=== PATIENT | male | born 1990 | race Caucasian/White ===

== ENCOUNTER 2020-09-08 12:13 | Emergency (ER) | payer MEDICAID ==
[2020-09-08 12:18] VITALS: BP 116/82
--- NOTE | 2020-09-08 12:23 | ED Physician Documentation ---
PD HPI UPPER EXT INJURY - Stated complaint Stated Complaint: LEFT HAND INJURY - Chief complaint Chief Complaint: Trauma Ext - History obtained from History obtained from: Patient - Additonal information Additional information: He is right-handed and up-to-date on tetanus. He was helping a friend and his left hand got caught between 2 rocks just about half an hour ago and he has pain in the area of the left thumb and the second and third metacarpals. Review of Systems Constitutional: reports: Reviewed and negative Throat: reports: Reviewed and negative Cardiac: reports: Reviewed and negative PD PAST MEDICAL HISTORY - Present Medications Home Medications: Ambulatory Orders Medication Instructions Recorded Confirmed HYDROcod/ACETAM 5/325 [[place] 5/325] 1 - 2 tab PO Q6H PRN #15 tab 09/08/20 - Allergies Allergies/Adverse Reactions: Allergies Allergy/AdvReac Type Severity Reaction Status Date / Time No Known Drug Allergies Allergy Verified 09/08/20 12:16 PD ED PE NORMAL - Vitals Vital signs reviewed: Yes - General General: Alert and oriented X 3, No acute distress - HEENT HEENT: PERRL, EOMI - Neck Neck: Supple, no meningeal sign, No bony TTP - Cardiac Cardiac: RRR, No murmur - Extremities Extremities: Other (see mdm- text box too small) - Neuro Neuro: Alert and oriented X 3, Normal speech Results - Vitals Vitals: Vital Signs - 24 hr 09/08/20 12:17 Temperature 36.8 C Heart Rate 76 Respiratory 18 Rate Blood Pressure 116/82 H O2 Saturation 100 Oxygen O2 Source Room air - Rads (name of study) 3v L hand Radiology: EMP read contemporaneously (Mildly displaced second metacarpal shaft fracture, although not commented on I do wonder if he is got a nondisplaced tuft fracture of the thumb as well.) Procedures - Splint (location) L hand Splint applied by: Physician Type of splint: Fiberglass, Thumb spica (Initially was planning on putting him in a radial gutter but he was actually more comfortable in a thumb spica.) Other: Patient tolerated well, No complications, Neurovascular intact, Other (Prior to splinting the abrasions were cleansed and dressed with Xeroform.) PD MEDICAL DECISION MAKING - ED course ED course: L hand exam: He has an early subungual hematoma of the left thumb, about 20%. There is significant swelling of the thumb and difficulty with range of motion due to pain. He is also tender over the second third metacarpals but without deformity or limited range of motion there. He has abrasions over the dorsum of the hand and the thumb. No neurovascular compromise at the tips of the digits. Departure - Departure Disposition: 01 Home, Self Care Clinical Impression: Fracture of second metacarpal bone Qualifiers: Encounter type: initial encounter Fracture type: closed Metacarpal location: shaft Fracture alignment: nondisplaced Laterality: left Qualified Code(s): S62.351A - Nondisplaced fracture of shaft of second metacarpal bone, left hand, initial encounter for closed fracture Condition: Good Record reviewed to determine appropriate education?: Yes Instructions: ED Fx Hand Closed Prescriptions: HYDROcod/ACETAM 5/325 [[place] 5/325] 1 - 2 tab PO Q6H PRN #15 tab PRN Reason: Pain Comments: Keep the splint on and dry, do not remove it. Follow-up with a hand surgeon in your area with a copy of the x-ray. Return if worsening.
[2020-09-08] MEDS ORDERED: TETANUS/DIPHTHERIA/PERTUSSIS 0.5 ML SYRINGE IM ONE (12:24)
[2020-09-08] MEDS ORDERED: ACETAMINOPHEN 325 MG TABLET PO STA (12:53)
--- NOTE | 2020-09-08 12:57 | XRAY Report ---
PROCEDURE: Hand 3 View LT INDICATIONS: hand inj TECHNIQUE: 3 views of the hand(s) acquired. COMPARISON: None FINDINGS: Bones: No dislocations. No suspicious bony lesions. Note is made of a set of a diagonal fractures involving the distal diaphysis and metadiaphysis of the second metacarpal bone, tracking distally tow ards but not clearly into the articular surface. No laceration or foreign body seen. Soft tissues: No suspicious soft tissue calcifications. IMPRESSION: Mildly comminuted distal second metacarpal fracture, only slightly malaligned, without laceration or foreign body seen. Reviewed by: Woody Fiarbanks MD on 09/08/2020 12:56 PM PST Approved by: Woody Fairbanks MD on 09/08/2020 12:56 PM PST Station ID: [id number]
== END 2020-09-08 13:12 | disposition home or self-care (01) ==
LOC: ED 12:13
DX: S62.351A Nondisplaced fracture of shaft of second metacarpal bone, left hand, initial encounter for closed fracture (principal); S60.112A Contusion of left thumb with damage to nail, initial encounter; S60.312A Abrasion of left thumb, initial encounter; S60.512A Abrasion of left hand, initial encounter; W23.0XXA Caught, crushed, jammed, or pinched between moving objects, initial encounter; Y93.89 Activity, other specified; Z23 Encounter for immunization
CPT/HCPCS: 29125; 73130; 90471; 90715; 99283; A9270